=== PATIENT | male | born 1955 | race Caucasian/White ===

== ENCOUNTER 2018-06-03 05:15 | Emergency (ER) | payer BC ==
--- NOTE | 2018-06-03 05:31 | EDM.PDOC ---
ED HPI GENERAL MEDICAL PROBLEM - General Chief Complaint: Chest Pain Stated Complaint: HEART ATTACK [id number] Time Seen by Provider: 06/03/18 05:25 Source of Information: Reports: Patient History Limitations: Reports: No Limitations - History of Present Illness INITIAL COMMENTS - FREE TEXT/NARRATIVE: onset left hand pain last night did go to sleep and woke up with shoulder & hand pain. took 3x NTG at 10 minutes apart and finally got relief when got into town. presently feeling much better but pain not totally gone. has [address] Morel @ . did see he few months ago for F/U. Left Shoulder Pain Score (Numeric/FACES): 4 - Related Data Allergies Allergy/AdvReac Type Severity Reaction Status Date / Time Penicillins Allergy Other Verified 06/03/18 05:30 Home Meds: Home Meds Aspirin [Chelsi Chewable Aspirin] 81 mg PO DAILY 06/03/18 [History] Clopidogrel [Plavix] 75 mg PO DAILY 06/03/18 [History] atorvaSTATin Calcium [Lipitor] 40 mg PO DAILY 06/03/18 [History] ED ROS GENERAL - Review of Systems Review Of Systems: ROS reveals no pertinent complaints other than HPI. ED EXAM, GENERAL - Physical Exam Exam: See Below Exam Limited By: No Limitations General Appearance: Alert, WD/WN, No Apparent Distress Ears: Hearing Grossly Normal Throat/Mouth: Normal Voice, No Airway Compromise Head: Atraumatic Neck: Non-Tender, Full Range of Motion Respiratory/Chest: No Respiratory Distress Cardiovascular: Regular Rate, Rhythm GI/Abdominal: Soft, Non-Tender Neurological: Alert, Oriented, Normal Cognition, Normal Gait, No Motor/Sensory Deficits Psychiatric: Normal Affect, Normal Mood Skin Exam: Warm, Dry, Normal Color Lymphatic: No Adenopathy Course - Vital Signs Last Recorded V/S: Last Vital Signs Temp 37.0 C 06/03/18 05:32 Pulse 59 L 06/03/18 05:32 Resp 16 06/03/18 05:32 BP 123/63 06/03/18 05:32 Pulse Ox 99 06/03/18 05:32 - Orders/Labs/Meds Orders: Active Orders 24 hr Category Date Time Status EKG 12 Lead [EKG Documentation Completion] [RC] URGENT Care 06/03/18 05:32 Active Labs: Laboratory Tests 08/26/18 08/26/18 Range/Units 05:59 05:59 WBC 5.6 (5.0-10.0) 10^3/uL RBC 4.06 L (4.6-6.2) 10^6/uL Hgb 13.2 L (14.0-18.0) g/dL Hct 39.0 L (40.0-54.0) % MCV 96.1 (80-100) fL MCH 32.5 (27.0-34.0) pg MCHC 33.8 (33.0-35.0) g/dL Plt Count 138 L (150-450) 10^3/uL Neut % (Auto) 53.1 (42.2-75.2) % Lymph % (Auto) 28.2 (20.5-50.1) % Nobles % (Auto) 11.6 H (2-8) % Eos % (Auto) 5.7 H (1.0-3.0) % Baso % (Auto) 1.4 H (0.0-1.0) % Sodium 137 (135-145) mmol/L Potassium 4.2 (3.6-5.0) mmol/L Chloride 106 (101-111) mmol/L Carbon Dioxide 23.0 (21.0-31.0) mmol/L Anion Gap 12.2 BUN 18 (7-18) mg/dL Creatinine 1.3 (0.6-1.3) mg/dL Est Cr Clr Drug Dosing 57.41 mL/min Estimated GFR (MDRD) 56 BUN/Creatinine Ratio 13.84 Glucose 91 (74-105) mg/dL Calcium 8.5 (8.4-10.2) mg/dl Total Bilirubin 0.4 (0.2-1.0) mg/dL AST 24 (10-42) IU/L ALT 22 (10-60) IU/L Alkaline Phosphatase 47 (42-121) IU/L Troponin I < 0.02 (0.00-0.02) ng/ml Total Protein 5.8 L (6.7-8.2) g/dl Albumin 3.3 (3.2-5.5) g/dl Globulin 2.5 Albumin/Globulin Ratio 1.32 Meds: Medications Discontinued Medications Generic Name Dose Route Start Last Admin Trade Name Freq PRN Reason Stop Dose Admin Hydromorphone HCl 1 mg 06/03/18 06:39 06/03/18 06:47 Dilaudid IVPUSH 06/03/18 06:40 1 mg ONETIME ONE Administration Morphine Sulfate 2 mg 06/03/18 05:33 06/03/18 05:46 Morphine IVPUSH 06/03/18 05:34 2 mg ONETIME ONE Administration Ondansetron HCl 4 mg 06/03/18 05:33 06/03/18 05:44 Zofran IV 06/03/18 05:34 4 mg ONETIME ONE Administration - Re-Assessments/Exams Free Text/Narrative Re-Assessment/Exam: 06/03/18 06:[address] Zimmerman who kindly accepted pt. Departure - Departure Time of Disposition: 06:51 Disposition: DC/Tfer to Acute Hospital 02 Reason for Transfer *Q: Other Condition: Fair Clinical Impression: Angina pectoris Forms: Interfacility Transfer EMTALA - My Orders Last 24 Hours: My Active Orders 06/03/18 05:32 EKG 12 Lead [EKG Documentation Completion] [RC] URGENT - Assessment/Plan Last 24 Hours: My Active Orders 06/03/18 05:32 EKG 12 Lead [EKG Documentation Completion] [RC] URGENT
[2018-06-03] MEDS ORDERED: Ondansetron 4 MG/2 ML SDV IV ONE (05:33)
[2018-06-03] MEDS ORDERED: Morphine 2 MG/ML Syringe IVPUSH ONE (05:33)
[2018-06-03 06:23] LABS: ANION GAP 12.2; CHLORIDE,CL 106 mmol/L (101-111); SODIUM,NA 137 mmol/L (135-145)
[2018-06-03] MEDS ORDERED: HYDROmorphone 0.5 MG/0.5 ML Syringe IVPUSH ONE (06:39)
--- NOTE | 2018-06-05 10:08 | EKG ---
06/03/2018- ISADORA JERRY - TIME: 5:19 a.m. FINDINGS: Sinus rhythm at 60. [facility] /[id number]
== END 2018-06-03 07:15 ==
LOC: DL.ED 05:15
DX: I20.9 Angina pectoris, unspecified (principal); I25.2 Old myocardial infarction; Z88.0 Allergy status to penicillin; Z79.82 Long term (current) use of aspirin; Z79.899 Other long term (current) drug therapy; Z95.5 Presence of coronary angioplasty implant and graft
CPT/HCPCS: 36415; 80053; 84484; 85025; 93005; 96374; 96375; 99285; J1170; J2270; J2405